=== PATIENT | male | born 1965 | race Caucasian/White ===

== ENCOUNTER 2019-07-01 06:58 | Day surgery (SDC) | payer BC ==
[~2019-07-01] VITALS: Ht 180.3 cm; Wt 89.7 kg
[~2019-07-01 06:58] MED LIST: ABAT250V; Adderall 20 MG20 MG PO; LOSA50 PO; PROAIR RESPICL90 MCG INH; SILDENAFIL CIT100 MG PO
== END 2019-07-01 08:49 | disposition home or self-care (01) ==
LOC: ORSCSDS 06:58
PROVIDERS: Surgery
PROC: 0DJD8ZZ Inspection of Lower Intestinal Tract, Via Natural or Artificial Opening Endoscopic (ICD-10-PCS; principal; 2019-07-01 08:00)
DX: Z12.11 Encounter for screening for malignant neoplasm of colon (principal); K57.30 Diverticulosis of large intestine without perforation or abscess without bleeding; Z80.0 Family history of malignant neoplasm of digestive organs; I10 Essential (primary) hypertension; F90.9 Attention-deficit hyperactivity disorder, unspecified type; Z79.899 Other long term (current) drug therapy
CPT/HCPCS: J0330; J0461; J2405; J2704; J7120

== ENCOUNTER 2020-11-22 10:47 | Emergency (ER) | payer BC ==
[~2020-11-22] VITALS: Ht 180.3 cm; Wt 98.0 kg
[2020-11-22 11:16] LABS: BASOPHILS ABSOLUTE AUTO 0.04 K/mm3 (0.00-0.23); BASOPHILS PERCENT AUTO 1 % (0-2); EOSINOPHILS ABSOLUTE AUTO 0.13 K/mm3 (0.00-0.68); EOSINOPHILS PERCENT AUTO 2 % (0-6); Hematocrit 49.9 % (37.0-53.0); Hemoglobin 17.2 g/dL (13.5-17.5); IMMATURE GRAN ABSOLUTE AUTO 0.03 K/mm3 (0.00-0.10); IMMATURE GRAN PERCENT AUTO 1 % (0-1); LYMPHOCYTES ABSOLUTE AUTO 1.26 K/mm3 (0.84-5.20); LYMPHOCYTES PERCENT AUTO 20 % (21-46); MONOCYTES ABSOLUTE AUTO 0.79 K/mm3 (0.16-1.47); MONOCYTES PERCENT AUTO 13 % (4-13); Mean Corpuscular HGB 31.6 pg (26.0-34.0); Mean Corpuscular HGB Conc 34.5 g/dL (31.5-36.5); Mean Corpuscular Volume 92 fL (80-100); Mean Platelet Volume 10.9 fL (9.1-12.4); NEUTROPHILS ABSOLUTE AUTO 4.08 K/mm3 (1.96-9.15); NEUTROPHILS PERCENT AUTO 64 % (41-73); Platelet Count 213 K/mm3 (150-400); RDW Coefficient Variation 12.7 % (11.7-14.2); RDW Standard Deviation 43.1 fL (35.1-46.3); Red Blood Cell Count 5.44 M/mm3 (4.30-5.90); White Blood Cell Count 6.33 K/mm3 (4.00-11.30)
[2020-11-22 11:29] LABS: Alanine Aminotransfer (ALT/SGP 86 U/L (12-78); Albumin, Blood 3.5 g/dL (3.4-5.0); Albumin/Globulin Ratio 0.9 (0.8-1.8); Alk Phos 119 U/L (50-136); Anion Gap 6 mmol/L (6-16); Aspartate Aminotrans (AST/SGOT 57 U/L (12-37); Bilirubin, Total 0.5 mg/dL (0.1-1.0); Blood Urea Nitrogen 10 mg/dL (8-24); Bun/Creatinine Ratio 12.3 (12.0-20.0); CO2, Blood 26 mmol/L (21-32); Calcium, Blood 8.9 mg/dL (8.5-10.1); Chloride, Blood 107 mmol/L (98-108); Creatinine, Blood 0.82 mg/dL (0.60-1.20); Globulin, Blood 3.9 g/dL (2.2-4.0); Glomerular Filtration Rate >60 (60-); Glucose, Blood 121 mg/dL (70-99); Potassium, Blood 4.5 mmol/L (3.5-5.5); Sodium, Blood 139 mmol/L (136-145); Total Protein, Blood 7.4 g/dL (6.4-8.2); Troponin I <0.015 ng/mL (0.000-0.040)
[2020-11-22] MEDS ORDERED: ELIQUIS5 MG PO (12:39)
[2020-11-22] MEDS ORDERED: DILT120 PO (12:39)
[2020-11-22 12:58] LABS: Free Thyroxine 1.05 ng/dL (0.70-1.60); Magnesium, Blood 2.6 mg/dL (1.6-2.4); Thyroid Stimulating Hormone 3.65 uIU/mL (0.360-4.800)
== END 2020-11-22 13:58 | disposition home or self-care (01) ==
LOC: ER 10:47
PROVIDERS: Emergency Medicine; Physician Assistant
DX: I48.91 Unspecified atrial fibrillation (principal); E78.00 Pure hypercholesterolemia, unspecified; F17.210 Nicotine dependence, cigarettes, uncomplicated; Z88.0 Allergy status to penicillin; Z88.2 Allergy status to sulfonamides; Z79.899 Other long term (current) drug therapy
CPT/HCPCS: 36415; 80053; 83735; 84439; 84443; 84484; 85025; 93005; 93010; 96374; 99285-25; J0456; J7050

== ENCOUNTER 2022-11-22 07:36 | Day surgery (SDC) | payer OTHER, BC ==
[~2022-11-22] VITALS: Ht 180.3 cm; Wt 104.7 kg
[~2022-11-22 07:36] MED LIST changes: +DILT120 PO; +ELIQUIS5 MG PO
[2022-11-22] MEDS ORDERED: METO50ER PO (08:53)
[2022-11-22] MEDS ORDERED: ALLO300 PO (09:17)
--- NOTE | 2022-11-22 10:04 | NUR ---
11/22/22 1004 Christen Moore BLOCK TO L SHOULDER COMPLETED BY DR RAINES AND DR KWON PRE-PROCEDURE, TIMEOUT COMPLETED PRIOR TO PROCEDURE
--- NOTE | 2022-11-22 11:17 | NUR ---
11/22/22 1117 NICK CANDELARIA 7MLS OF NORMAL SALINE WITH EPI 1:200,000 INJECTED INTO LEFT SHOULDER AT START OF CASE BY DR. HERNANDEZ FOR HOMEOSTASIS.
--- NOTE | 2022-11-22 13:30 | NUR ---
11/22/22 1330 Scott Bowen PT FELT NAUSEAS IN PAR AND STEP DOWN. PT REPORTS STILL HAVING MILD NAUSEA, BUT HE STATES THAT NAUSEA HAS SUBSIDED TO A TOLERABLE LEVEL FOR FRETURNING HOME.
== END 2022-11-22 14:03 | disposition home or self-care (01) ==
LOC: ORSCSDS 07:36
PROVIDERS: Orthopaedic Surgery
PROC: 0LM24ZZ Reattachment of Left Shoulder Tendon, Percutaneous Endoscopic Approach (ICD-10-PCS; principal; 2022-11-22 09:00)
PROC: 0RNK4ZZ Release Left Shoulder Joint, Percutaneous Endoscopic Approach (ICD-10-PCS; principal; 2022-11-22 09:00)
DX: M75.122 Complete rotator cuff tear or rupture of left shoulder, not specified as traumatic (principal); M75.52 Bursitis of left shoulder; F90.9 Attention-deficit hyperactivity disorder, unspecified type; I10 Essential (primary) hypertension; Z85.51 Personal history of malignant neoplasm of bladder; Z79.899 Other long term (current) drug therapy
CPT/HCPCS: A9270; C1713; J0171; J0690; J2250; J2405; J2704; J2765; J3010; J7120